=== PATIENT | male | born 1935 | race Caucasian/White ===

== ENCOUNTER 2016-10-05 06:34 | Emergency (ER) | payer MEDICARE, OTHER ==
[2016-10-05] MEDS ORDERED: diltiaZEM INJ 5 MG/ML VIAL IVP STA (06:59)
[2016-10-05] MEDS ORDERED: diltiaZEM INJ 5 MG/ML VIAL ONE (07:07)
== END 2016-10-05 07:55 | disposition home or self-care (01) ==
DX: R00.2 Palpitations (principal); I48.91 Unspecified atrial fibrillation; Z79.82 Long term (current) use of aspirin; G47.30 Sleep apnea, unspecified; K21.9 Gastro-esophageal reflux disease without esophagitis; M06.9 Rheumatoid arthritis, unspecified

== ENCOUNTER 2016-11-30 06:05 | Day surgery (SDC) | payer MEDICARE, OTHER ==
[2016-11-30] MEDS ORDERED: ceFAZolin 2 GM/50 ML 50 ML IV ONE (06:26)
[2016-11-30] MEDS ORDERED: LACTATED RINGERS 1,000 ML IV ONE (06:45)
[2016-11-30] MEDS ORDERED: LIDOCAINE 1%-EPI 1:100000 30 ML MDV SUBQ ONE ×2 (07:52)
[2016-11-30] MEDS ORDERED: BUPIVACAINE 0.5% PF 30 ML VIAL SUBQ ONE ×2 (07:52)
[2016-11-30] MEDS ORDERED: PROPOFOL 200 MG/20 ML VIAL IVP ONE (09:00)
[2016-11-30] MEDS ORDERED: LIDOCAINE-MPF 2% 5 ML VIAL IM ONE (09:00)
[2016-11-30] MEDS ORDERED: fentaNYL 100 MCG/2 ML VIAL IVP ONE (09:00)
[2016-11-30] MEDS ORDERED: MIDAZOLAM 2 MG/2 ML VIAL IVP ONE (09:00)
[2016-11-30 10:10] VITALS: BP 124/67
--- NOTE | 2016-11-30 12:54 | XRAY Report ---
FRONTAL CHEST: 11/30/2016 CLINICAL INDICATION: Port placement. FINDINGS: Frontal view of the chest demonstrates a right jugular port terminating in the inferior ve na cava. No pneumothorax is present. Patchy atelectasis is noted. IMPRESSION: RIGHT JUGULAR PORT TERMINATING IN THE INFERIOR VENA CAVA. RESULTS CALLED TO DR. PULLIAM ON 11/30/2016 AT 9:30 AM. JOB #: [id number] EXT JOB #:[id number]
--- NOTE | 2016-11-30 12:56 | XRAY Report ---
INTRAOPERATIVE IMAGING OF PORT PLACEMENT: 11/30/2016 CLINICAL INDICATION: Port placement. FINDINGS: Fluoroscopy was provided to Dr. King. Thirty-five seconds of fluoroscopy time was util ized. One spot image was obtained. Spot image demonstrates a right jugular catheter terminating in the proximal right atrium. IMPRESSION: INTRAOPERATIVE IMAGING OF PORT PLACEMENT. DOCUMENTATION OF FLUOROSCOPY. JOB #: [id number] EXT JOB #:
--- NOTE | 2016-12-02 07:43 | OPERATIVE REPORT ---
DATE OF SURGERY: 11/30/2016 00:00:00 PREOPERATIVE DIAGNOSIS: Esophageal cancer. POSTOPERATIVE DIAGNOSIS: Esophageal cancer. PROCEDURE: Port-A-Cath placement. INDICATION FOR PROCEDURE: Esophageal cancer. SURGEON: Clotilde King MD ANESTHESIA: (not dictated) FINDINGS: After obtaining informed consent, the patient was brought into the operating room and positioned on the operating table in the supine position with his arms tucked and a shoulder roll placed. He was administered sedation. He was then prepped and draped in the usual sterile fashion, and 2 grams of Ancef was administered. A time-out was taken according to protocol. An infraclavicular access site for a subclavian was chosen and the finder needle inserted below the clavicle. The clavicle was noted to be very wide, and access under the clavicle was very deep. My initial access point accessed the subclavian artery. The needle was then withdrawn and pressure held. I then turned my attention to the patient's left IJ. Using ultrasound guidance, the IJ was noted to be very superficial and was accessed; however, the needle would not thread down inton the SVC and continued to traverse into the right subclavian. After multiple attempts to thread the wire, this was abandoned. I again tried to access the internal jugular in a different location; however, I was unsuccessful. I then turned my attention to the patient's right neck. The finder needle was easily accessed into the right internal jugular and at this point the wire threaded very easily. The wire was noted to be descending towards the diaphragm on fluoroscopy. An incision was made on the right chest wall approximately 2 cm in length and deepened down through the clavipectoral fascia. A pocket was then created. Lidocaine was administered during this process. A tunneling device was then utilized to tunnel the catheter from the MediPort incision to the neck incision after extending the needle insertion site slightly. The catheter was brought out through the neck incision. Under direct fluoroscopy, the dilator and sheath were inserted over the wire in a Seldinger technique. The wire was then removed and the catheter inserted. The catheter positioning was adjusted under fluoroscopy. However, I could only move the catheter back at a certain point, and then it would no longer easily slide back. The tip of the catheter was noted to be in the IVC. The catheter was then cut to an appropriate length and connected to the MediPort device. The device was then tested by flushing saline and withdrawing blood, and it did so easily. The port was then inserted into the port cavity and sutured to the clavipectoral fascia with 2 interrupted Prolene stitches. Subcutaneous tissue was closed with 3-0 Vicryl, and skin incisions were closed with 4-0 Monocryl. Again the port was accessed through the skin and flushed easily and withdrew blood easily. It was flushed with heparinized saline. ESTIMATED BLOOD LOSS: 20 mL. COMPLICATIONS: None. SPECIMENS: None. JOB #: [id number] EXT JOB #:[id number] DOMINGA
== END 2016-11-30 06:06 | disposition home or self-care (01) ==
LOC: SDS 06:05
PROVIDERS: ATTEND Surgery
PROC: 06H033Z Insertion of Infusion Device into Inferior Vena Cava, Percutaneous Approach (ICD-10-PCS; 2016-11-30)
PROC: 0JH63XZ Insertion of Tunneled Vascular Access Device into Chest Subcutaneous Tissue and Fascia, Percutaneous Approach (ICD-10-PCS; principal; 2016-11-30 07:30)
DX: C15.9 Malignant neoplasm of esophagus, unspecified (principal); I25.10 Atherosclerotic heart disease of native coronary artery without angina pectoris; I48.91 Unspecified atrial fibrillation; G47.30 Sleep apnea, unspecified; I10 Essential (primary) hypertension
CPT/HCPCS: 36561; 71010; C1788; J0690; J7120

== ENCOUNTER 2017-03-18 13:47 | Outpatient (CLI) | payer MEDICARE, OTHER | END 2017-03-18 13:48 | disposition home or self-care (01) | LOC: DI 13:47 | PROVIDERS: ATTEND Internal Medicine Hematology & Oncology | DX: C15.9 Malignant neoplasm of esophagus, unspecified (principal); I51.7 Cardiomegaly | CPT/HCPCS: 93306 ==

== ENCOUNTER 2017-05-17 09:00 | Outpatient (CLI) | payer MEDICARE, OTHER | END 2017-05-17 09:01 | disposition home or self-care (01) | LOC: LAB.R 09:00 | PROVIDERS: ATTEND Internal Medicine | DX: J84.9 Interstitial pulmonary disease, unspecified (principal) | CPT/HCPCS: 87070; 87205 ==

== ENCOUNTER 2017-06-01 07:31 | Outpatient (CLI) | payer MEDICARE, OTHER | END 2017-06-01 07:32 | disposition critical access hospital (66) | LOC: EMS 07:31 | PROVIDERS: ATTEND Surgery | DX: R06.00 Dyspnea, unspecified (principal) | CPT/HCPCS: A0425; A0427 ==

== ENCOUNTER 2017-06-01 08:00 | Inpatient (IN) | payer MEDICARE, OTHER ==
--- NOTE | 2017-06-01 08:22 | ED Physician Documentation ---
PD HPI DYSPNEA - Stated complaint Stated Complaint: SOA - Chief complaint Chief Complaint: Resp - History obtained from History obtained from: Patient - History of Present Illness Timing - onset: How many days ago (2) - Additional information Additional information: 81 year old male with Shortness of breath beginning 2 days ago, worsening last night. He reports that his oxygen saturation normally drops into the 80s with ambulation on his usual 2 L of nasal cannula, but improves with rest. Last night O2 as low as 55%,Daughter increased oxygen to 5 L nasal cannula without improvement. EMS placed patient on DuoNeb with 10 L, and 6 L nasal cannula underneath with oxygen saturation up to 90s. Patient denies chest pain, does not use nebulizers or inhalers at home,Complains of generalized weakness. He has a chronic cough does not believe it is changed from usual, no fevers.Patient just finished a 48 hour infusion of chemotherapy on Saturday.He takes no blood thinners, has history of A. fib but reports that he does trolled with flecainide (patient also on digoxin). No history of blood clots, reports chronic lower extremity swelling that is improved currently. He reports that he has assigned POLST with DNR, but does accept intubation. Oncology Dr. [facility] [place] Review of Systems Ten Systems: 10 systems reviewed and negative Constitutional: denies: Fever Throat: denies: Sore throat Cardiac: denies: Chest pain / pressure Respiratory: reports: Dyspnea GI: denies: Abdominal Pain : denies: Dysuria Skin: denies: Rash Musculoskeletal: reports: Back pain, Extremity swelling (improved from baseline) Neurologic: reports: Generalized weakness Immunocompromised: reports: Chemotherapy PD PAST MEDICAL HISTORY - Past Medical History Cardiovascular: Atrial fibrillation, Other Respiratory: Sleep apnea, Other Neuro: None Endocrine/Autoimmune: None GI: GERD : Nocturia, Frequency HEENT: Chronic vision loss Psych: None Musculoskeletal: Rheumatoid arthritis, Other Derm: None - Past Surgical History General: Appendectomy, Colonoscopy Cardiovascular: Other HEENT: Tonsil/Adenoidectomy - Present Medications Home Medications: Ambulatory Orders Medication Instructions Recorded Confirmed Ascorbic Acid [Vitamin C] 1,000 mg PO BID 05/11/15 06/01/17 Aspirin EC [Ecotrin] 325 mg PO DAILY 05/11/15 06/01/17 Cyanocobalamin (Vitamin B-12) 5,000 mcg SL DAILY 05/11/15 06/01/17 [B-12] Dutasteride [Avodart] 0.5 mg PO DAILY 05/11/15 06/01/17 Flaxseed Oil [Flaxseed] 1,300 mg PO DAILY 05/11/15 06/01/17 Flecainide Acetate 100 mg PO BID 05/11/15 06/01/17 Fluticasone [Flonase] 1 sprays WANG BID 05/11/15 06/01/17 Gluc Hughes/Chondro Hughes A/Vit C/Mn 1 each PO BID 05/11/15 06/01/17 [Glucosamine 1,500 Complex Cp] Hydroxychloroquine [Plaquenil] 200 mg PO BID 05/11/15 06/01/17 L.acidoph,Paracasei, B.lactis 1 each PO BID 05/11/15 06/01/17 [Probiotic] Lactobacillus Acidophilus 1 each PO BID 05/11/15 06/01/17 [Acidophilus] Loratadine 10 mg PO DAILY 05/11/15 06/01/17 Multivitamin with Minerals 1 each PO DAILY 05/11/15 06/01/17 [Multiple Vitamin] [place]-3/Dha/Epa/Fish Oil [Fish Oil 1 cap PO DAILY 05/11/15 06/01/17 1,400 mg Softgel] Vitamin A 8,000 unit PO DAILY 05/11/15 06/01/17 Cholecalciferol (Vitamin D3) 2,000 unit ORAL DAILY 10/05/16 06/01/17 [Vitamin D3] Iron,Carbonyl [Iron Chews] 60 mg ORAL BID 10/05/16 06/01/17 Ubidecarenone/Vitamin E Mixed 300 mg ORAL BID 10/05/16 06/01/17 [Dtz87-Gal E 100 mg-10 Unit Sfg] Pantoprazole [Protonix] 40 mg PO QDAC 01/02/17 06/01/17 B Complx/C/Folic/Zinc/Copper/E 1 tab PO DAILY 03/26/17 06/01/17 [Eql Stress B-Complex Tablet] predniSONE [Prednisone] 40 mg PO DAILY MDD x 7 days 05/31/17 06/01/17 Digoxin [Digoxin] 125 mcg PO SUTUTHSA@0900 06/01/17 06/01/17 Digoxin [Digoxin] 250 mcg PO MOWEFR@0900 06/01/17 06/01/17 Fluorouracil 4,700 mg IV .[id number] 06/01/17 06/01/17 LORazepam [Lorazepam] 0.5 mg PO PRN PRN 06/01/17 06/01/17 Leucovorin Calcium 350 mg IV .[id number] 06/01/17 06/01/17 Ondansetron HCl [Zofran] 4 mg PO Q6H PRN 06/01/17 06/01/17 Prochlorperazine [Compazine] 10 mg PO Q6H PRN 06/01/17 06/01/17 Trastuzumab [Herceptin] 320 mg IV .[id number] 06/01/17 06/01/17 Zoledronic Acid 4 mg/100 ml 3 mg IV .[id number] 06/01/17 06/01/17 [Zometa 4 mg/100 ml] - Allergies Allergies/Adverse Reactions: Allergies Allergy/AdvReac Type Severity Reaction Status Date / Time ciprofloxacin [From Cipro] Allergy Intermediate Hives Verified 06/01/17 08:06 ciprofloxacin HCl * Allergy Intermediate Hives Verified 06/01/17 08:06 [From Cipro] - Living Situation Living Situation: reports: With spouse/s.o. Living Arrangement: reports: At home - Social History Does the pt smoke?: No Smoking Status: Never smoker Does the pt drink ETOH?: No Does the pt have substance abuse?: No - Immunizations Immunizations are current?: Yes PD ED PE NORMAL - Vitals Vital signs reviewed: Yes - General General: Alert and oriented X 3 - HEENT HEENT: Atraumatic - Neck Neck: Supple, no meningeal sign - Cardiac Cardiac: No murmur, Other (tachycardia) - Respiratory Respiratory: Other (tachypnea without distress, speaking in short sentences, no wheeze, equal breath sounds BL ) - Abdomen Abdomen: Normal bowel sounds, Non tender, Non distended - Male Male : Deferred - Derm Derm: Warm and dry, Other (peripheral cyanosis ) - Extremities Extremities: No tenderness to palpate, No edema - Neuro Neuro: Alert and oriented X 3, Normal speech - Psych Psych: Normal affect Results - Vitals Vitals: Vital Signs - 24 hr 06/01/17 06/01/17 08:02 08:56 Temperature 36.6 C Heart Rate 101 H 91 Respiratory 26 H 24 Rate Blood Pressure 190/113 H 178/95 H O2 Saturation 81 L 97 Oxygen O2 Source Non-rebreather mask - Labs Labs: Laboratory Tests 06/01/17 06/01/17 06/01/17 08:20 08:20 08:20 WBC 12.9 H RBC 3.96 L Hgb 12.4 L Hct 36.2 L MCV 91.3 MCH 31.2 H MCHC 34.2 RDW 21.4 H Plt Count 183 MPV 7.0 L Neut # 12.0 H Lymph # 0.6 L [place] # 0.2 Eos # 0.0 Baso # 0.1 Absolute Nucleated RBC 0.00 Nucleated RBC % 0.0 Manual Slide Review Indicated Platelet Estimate NORMAL (130-450,000) Platelet Morphology NORMAL APPEARANCE RBC Morph Micro Appear 1+ ANISOCYTOSIS PT 15.5 H INR 1.4 H APTT 23.5 L VBG pH VBG pCO2 VBG pO2 VBG HCO3 VBG Total CO2 VBG O2 Saturation VBG Base Excess Sodium 134 L Potassium 3.7 Chloride 99 L Carbon Dioxide 23 Anion Gap 12.0 BUN 33 H Creatinine 0.9 Estimated GFR (MDRD) 81 L Glucose 142 H Lactic Acid Calcium 9.1 Total Bilirubin 1.0 AST 25 ALT 20 Alkaline Phosphatase 70 Troponin I B-Natriuretic Peptide Total Protein 6.7 Albumin 2.8 L Globulin 3.9 Albumin/Globulin Ratio 0.7 L Lipase 15 L Urine Color Urine Clarity Urine pH Ur Specific Protivin Urine Protein Urine Glucose (UA) Urine Ketones Urine Occult Blood Urine Nitrite Urine Bilirubin Urine Urobilinogen Ur Leukocyte Esterase Ur Microscopic Review Urine Culture Comments Last Dose Date Last Dose Time Digoxin 06/01/17 06/01/17 06/01/17 08:20 08:20 08:20 WBC RBC Hgb Hct MCV MCH MCHC RDW Plt Count MPV Neut # Lymph # [place] # Eos # Baso # Absolute Nucleated RBC Nucleated RBC % Manual Slide Review Platelet Estimate Platelet Morphology RBC Morph Micro Appear PT INR APTT VBG pH 7.450 H VBG pCO2 36.4 L VBG pO2 33.8 VBG HCO3 24.7 VBG Total CO2 25.8 VBG O2 Saturation 72.1 VBG Base Excess 1.0 Sodium Potassium Chloride Carbon Dioxide Anion Gap BUN Creatinine Estimated GFR (MDRD) Glucose Lactic Acid 0.9 Calcium Total Bilirubin AST ALT Alkaline Phosphatase Troponin I < 0.04 B-Natriuretic Peptide Total Protein Albumin Globulin Albumin/Globulin Ratio Lipase Urine Color Urine Clarity Urine pH Ur Specific Protivin Urine Protein Urine Glucose (UA) Urine Ketones Urine Occult Blood Urine Nitrite Urine Bilirubin Urine Urobilinogen Ur Leukocyte Esterase Ur Microscopic Review Urine Culture Comments Last Dose Date Last Dose Time Digoxin 06/01/17 06/01/17 06/01/17 08:20 08:20 08:45 WBC RBC Hgb Hct MCV MCH MCHC RDW Plt Count MPV Neut # Lymph # [place] # Eos # Baso # Absolute Nucleated RBC Nucleated RBC % Manual Slide Review Platelet Estimate Platelet Morphology RBC Morph Micro Appear PT INR APTT VBG pH VBG pCO2 VBG pO2 VBG HCO3 VBG Total CO2 VBG O2 Saturation VBG Base Excess Sodium Potassium Chloride Carbon Dioxide Anion Gap BUN Creatinine Estimated GFR (MDRD) Glucose Lactic Acid Calcium Total Bilirubin AST ALT Alkaline Phosphatase Troponin I B-Natriuretic Peptide 133 H Total Protein Albumin Globulin Albumin/Globulin Ratio Lipase Urine Color YELLOW Urine Clarity CLEAR Urine pH 6.0 Ur Specific Protivin 1.020 Urine Protein TRACE Urine Glucose (UA) NEGATIVE Urine Ketones NEGATIVE Urine Occult Blood NEGATIVE Urine Nitrite NEGATIVE Urine Bilirubin NEGATIVE Urine Urobilinogen 0.2 (NORMAL) Ur Leukocyte Esterase NEGATIVE Ur Microscopic Review NOT INDICATED Urine Culture Comments NOT INDICATED Last Dose Date UNK Last Dose Time UNK Digoxin 0.5 PD MEDICAL DECISION MAKING - ED course Complexity details: reviewed old records, reviewed results, re-evaluated patient , considered differential, d/w patient ED course: 8:53 AM, Chest x-ray with worsening bilateral infiltrates per my interpretation. Patient has an elevation in his white blood cell count 12.6 increased from prior values, he may be having worsening interstitial lung disease which was seen on CT of his chest in March. Will treat with antibiotics for healthcare associated pneumonia, blood cultures sent, VBG without CO2 retention, Improvement in patient's oxygenation with nonrebreather.Will treat with IV steroids for interstitial lung disease. 9:19 Updated patient and family members regarding possible pneumonia vs. worsening interstitial lung disease, Plan for admission to ICU. Patient's oxygenation and shortness of breath improved, transitioned to 7L via oxygen mask , however continues to have tachypnea. Discussed patient's case with Dr. Junior , agrees with admission. Given vancomycin, zosyn, IV solumedrol. Departure - Departure Disposition: 66 [facility] DC/Xfer Clinical Impression: Hypoxia, SOB (shortness of breath), Interstitial lung disease, Healthcare- associated pneumonia Condition: Serious Discharge Date/Time: 06/01/17 10:18
[2017-06-01 08:41] LABS: VBG PCO2 36.4 mmHg (41-51); VBG PH 7.45 (7.31-7.41); VBG PO2 33.8 mmHg (25-47); VBG TOTAL CO2 25.8 mmol/L (24-29)
[2017-06-01 08:43] LABS: BASOPHILS # (AUTO) 0.1 10^3/uL (0.0-0.1); BASOPHILS % (AUTO) 0.6 %; HGB - HEMOGLOBIN 12.4 g/dL (14.0-18.0); LYMPHOCYTES # (AUTO) 0.6 10^3/uL (1.5-3.5); LYMPHOCYTES % (AUTO) 4.8 %; MEAN CORPUSCULAR HEMOGLOBIN 31.2 pg (27.0-31.0); MEAN CORPUSCULAR HGB CONC 34.2 g/dL (32.0-36.0); MEAN CORPUSCULAR VOLUME 91.3 fL (80.0-94.0); MONOCYTES # (AUTO) 0.2 10^3/uL (0.0-1.0); MONOCYTES % (AUTO) 1.9 %; NEUTROPHILS % (AUTO) 92.7 %; PLT - PLATELET COUNT 183 10^3/uL (130-450); RED BLOOD COUNT 3.96 10^6/uL (4.70-6.10); RED CELL DISTRIBUTION WIDTH 21.4 % (12.0-15.0); WHITE BLOOD COUNT 12.9 x10^3/uL (4.8-10.8)
[2017-06-01 08:49] LABS: INR 1.4 (0.8-1.2); PT - PROTHROMBIN TIME 15.5 secs (9.9-12.6)
[2017-06-01 08:51] LABS: ALBUMIN 2.8 g/dL (3.2-5.5); ALBUMIN/GLOBULIN RATIO 0.7 (1.0-2.2); CALCIUM 9.1 mg/dL (8.5-10.3); CREATININE 0.9 mg/dL (0.6-1.2); TOTAL PROTEIN 6.7 g/dL (6.7-8.2)
[2017-06-01 08:54] LABS: BILIRUBIN,URINE NEGATIVE (NEGATIVE); GLUCOSE, URINE (UA) NEGATIVE (NEGATIVE); KETONES,URINE (UA) NEGATIVE (NEGATIVE); LEUKOCYTE ESTERASE, URINE NEGATIVE (NEGATIVE); NITRITE,URINE NEGATIVE (NEGATIVE); OCCULT BLOOD,URINE NEGATIVE (NEGATIVE); PROTEIN,URINE TRACE mg/dL (NEGATIVE); UROBILINOGEN,URINE 0.2 (NORMAL) E.U./dL (NORMAL)
[2017-06-01 08:55] LABS: DIGOXIN 0.5 ng/mL
[2017-06-01 08:57] LABS: CLARITY,URINE CLEAR (CLEAR)
[2017-06-01] MEDS ORDERED: VANCOMYCIN INJ 1 GM in SODIUM CHLORIDE 0.9% 250 ML IV STA (08:57)
[2017-06-01] MEDS ORDERED: PIPERACILLIN/TAZOBACTAM 4.5 GM in SODIUM CHLORIDE 0.9% MINIBAG 100 ML IV STA (08:57)
[2017-06-01] MEDS ORDERED: methylPREDNISolone SUCCINATE 125 MG/2 ML VIAL IVP STA (08:59)
--- NOTE | 2017-06-01 09:00 | XRAY Preliminary Report ---
Exam: XR CHEST 1 VIEW IMPRESSION: 1. Mildly lower lung volumes with increased bilateral patchy and groundglass opacities throughout bot h lungs since the prior study. This may reflect a combination of worsening pneumonia, edema, and atel ectasis in the proper settings. 2. No large effusions identified, although small effusions would be difficult to completely exclude. 3. Stable right-sided port catheter with tip terminating deep within the right atrium. [facility] SITE ID: [id number]
--- NOTE | 2017-06-01 09:03 | XRAY Report ---
EXAM: CHEST RADIOGRAPHY EXAM DATE: 06/01/2017 08:46 AM. CLINICAL HISTORY: Hypoxia. COMPARISON: CT 04/24/2017. TECHNIQUE: 1 view. FINDINGS: Lungs/Pleura: Lung volumes are mildly low. Apparent increase of bilateral patchy and groundglass opac ities throughout both lungs since the prior study. No large effusions identified. No pneumothorax chip ntified. Mediastinum: Cardiac silhouette size appears stable. Right-sided chest wall port catheter tip appears stable terminating deep within the right atrium. Other: None. IMPRESSION: 1. Mildly lower lung volumes with increased bilateral patchy and groundglass opacities throughout bot h lungs since the prior study. This may reflect a combination of worsening pneumonia, edema, and atel ectasis in the proper settings. 2. No large effusions identified, although small effusions would be difficult to completely exclude. 3. Stable right-sided port catheter with tip terminating deep within the right atrium. [facility] Referring Provider Line: [phone] SITE ID: [id number]
[2017-06-01 09:07] LABS: PLATELET ESTIMATE, MANUAL NORMAL (130-450,000) (NORMAL); PLATELET MORPHOLOGY NORMAL APPEARANCE (NORMAL); RBC MORPHOLOGY (MULTIPLE) 1+ ANISOCYTOSIS (NORMAL)
[2017-06-01] MEDS ORDERED: methylPREDNISolone SUCCINATE 125 MG/2 ML VIAL ONE (09:08)
[2017-06-01] MEDS ORDERED: ONDANSETRON ODT 4 MG TABLET TL PRN (09:16)
[2017-06-01] MEDS ORDERED: SODIUM CHLORIDE FLUSH 0.9% 10 ML SYRINGE IVP PRN (09:16)
[2017-06-01] MEDS ORDERED: ACETAMINOPHEN 325 MG TABLET PO PRN (09:16)
[2017-06-01] MEDS ORDERED: HYDROcod/ACETAM 5/325 MG TABLET PO PRN (09:16)
[2017-06-01] MEDS ORDERED: ONDANSETRON 4 MG/2 ML VIAL IVP PRN (09:16)
[2017-06-01] MEDS ORDERED: ALBUTEROL NEB 2.5 MG/3 ML INH PRN (09:16)
[2017-06-01] MEDS ORDERED: LACTOBACILLUS ACIDOPHILUS PO SCH (09:30)
[2017-06-01] MEDS ORDERED: VANCOMYCIN 1 GM VIAL ONE (09:46)
[2017-06-01] MEDS ORDERED: VANCOMYCIN PER PHARMACY 1 GM in SODIUM CHLORIDE 0.9% 250 ML IV SCH (10:00)
--- NOTE | 2017-06-01 10:25 | HISTORY & PHYSICAL EXAMINATION ---
Chief Complaint - Chief Complaint Chief Complaint: Severe shortness of breath in a patient who has known interstitial lung pro History of Present Illness - Admitted From Admitted From:: Emergency room - History Obtained From Records Reviewed: [employer] [facility] History obtained from: Patient, medical record, and emergency room physician Exam Limitations: Patient shortness of breath - History of Present Illness HPI Comment/Other: Primary Care Provider: Usman Hernandez MD in [place], [place] Oncology: Bonnie Hammer MD at [facility], Oncology seen at [facility] Grain Manager: Ellis Arriaza MD at [facility] in [place]. 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 Up until then, he was quite healthy. That biopsy led to a CT PET on November 21, 2016. It showed a primary mass in the esophagus with metastatic disease to the left supraclavicular nodes, bilateral mediastinum and raymond, left parotid, right thyroid, right mid lung, and extensive osseous involvement including sternum, multiple ribs, lumbar spine and sacrum, left iliac bone, left issue him, left humeral shaft, femurs bilaterally. Chest x-ray done in 2011 already showed underlying emphysema with basilar fibrosis. He shares that he's had "rheumatoid lung" for over 2 decades and is followed by Dr. Ellis Arriaza from [facility] in [place] and [place]. The CT PET done October 2016 showed bilateral diffuse interstitial infiltrates with subpleural septal thickening compatible with interstitial lung disease. 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 He was recommended for Herceptin continued chemotherapy regimen and modified FOLFOX 6 every 2 weeks. Plan was 12 cycles. Side effects were fatigue, nausea, abdominal pain, diarrhea, peripheral neuropathy, bone marrow suppression. He was given Zometa infusion for his bony metastases.The patient was hoping for disease remission. Symptoms at the beginning of treatment were low. Mainly he was having difficulty eating , with increased acid reflux type pain and it would take 30-60 minutes to eat breakfast.[place]. In October he was sleeping a little bit more than usual, a little bit more fatigued than usual but still able to take care of the 5 acres, do yard work, work in his shop. Port-A-Cath was placed November 30, [address] Claire King.While he has had no clinical evidence of disease recurrence or progression, his complications have included a gradually worsening shortness of breath throughout his therapy. Bony metastases were managed with Zometa. He did develop peripheral neuropathy, and a pancytopenia that is remained stable and not worsening. Treatment continued until April 23 when increasing toxicity and poor tolerance to his chemotherapy resulted in it being held. Repeat CT scan for staging was done because his CEA had continued decline. 5- FU and Herceptin were started as maintenance. CT of the chest was done for restaging and the April 25 CT of the chest showed a gross increase in bilateral interstitial lung disease with groundglass opacities and interstitial thickening. These findings were seen as possible to radiation. The diagnosis of interstitial lung disease was added to his April 30 note with the Oncologist. For the first time his cough was discussed. Oncology felt that his cough was not related to his metastatic cancer. And he was encouraged to see a lock installer. He did see who ordered PFT's and was put on doxycycline the week before . Pulmonary function study done May 20, 2017 showed an FVC of 2.03 L which was 51% of predicted. An FEV1 was 1.8 L which was 64% of predicted. His FEV1/ FVC ratio was 88 which was 124% of predicted. Lung volumes showed an FVC of 2.08 L which was 47% of predicted. Diffusion capacity was measured at 8.66 which was 26% predicted. He was felt to have an element of obstruction but more than anything else restriction and a severe reduction in diffusion capacity. This reduction was felt to be due to disease at the capillary alveolar level. While he was getting a dose of chemotherapy May 29, Hayley Stratton, the nurse practitioner sales team manager ambulatory clinic, evaluated him to make sure his oxygen was okay. Up until then, he doesn't think his O2 sat were checked with his lock installer or with the PFT's. So he doesn't know how long his oxygen has been low. At rest he had a 93% saturation on room air. With exertion he dropped to 82%. He ended up needing 5 L/min per nasal cannula to maintain an O2 sat of 90% with exertion. Home oxygen was ordered. There is no indication of the cause of the hypoxia at this time. No workup of the hypoxia other than pulmonary function studies. He now presents today so short of breath that he cannot be comfortable even at rest. He woke up struggling to breath and has felt awful. He has productive cough of blood tinged phlegm, and he denies fever, chills, rigors. His appetite is poor and he keeps losing weight. It hurts to eat to much in the mid esophagus. While he had some leg edema in May, that has abated. In the ER, he is afebrile, newly elevated white cell count to 12.9. He was struggling to breath with a rate of 26, ribs retracting and 81% on NC. He needs a 7 liter nonrebreather to get him above 90%. Chest x-ray shows the much worse ground glass diffuse infiltrates when compared to the 04/25 CT. We are going to admit him for empiric treatment of bronchiectasis and further workup of this disease process. History - Past Medical History Cardiovascular: reports: Atrial fibrillation (Ablation in 2005. 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 Was on Proscar clinical trial for 6 years without improvment. ), Nocturia, Frequency HEENT: reports: Chronic vision loss, Chronic hearing loss (with hearing aids.), Other (early cataracts.) Psych: reports: None Musculoskeletal: reports: Rheumatoid arthritis (On Arava and Plaquenil when treatment for cancer started), Other (Severe AC joint arthropathy with fraying of the labrum, biceps tear, supraspinatus and infraspinatus tear, and atrophy of the teres minor muscle. He saw MD Dawna and surgery was not recommended bc of the severe deterioration.) Derm: reports: None MRSA Hx?: No Other Past Medical History: lung disease - Past Surgical History General: reports: Appendectomy, Colonoscopy, Other (Left inguinal hernia repair with mesh May 13, 2015) Cardiovascular: reports: Other (Status post ablation 2005) HEENT: reports: Tonsil/Adenoidectomy Other past surgical history: Port-A-Cath placement November 30, 2016 - Family & Social History Family History Comment/Other: Both mom and dad around age 89. Dad had lung cancer and decades prior to his and had recurrence and . Mom just of old age. One sister at age 13 of leukemia 2 sons and 1 daughter are healthy without any major medical issues Living arrangement: At home Living Situation: With spouse/s.o. Social History Notes: Non-smoker. Rare alcohol drinker. to his , Deanna, for 56 years. They have 3 very supportive children. 2 sons are in [place], and the daughter lives in [place]. He was born in [place]. 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 He is retired from the [employer] after 30 years, and is a semiretired certified medical technician assistant. His is an assistant financial accountant.They have been living on [address] [facility] for 52 years - Substance History Use: Uses substance without health or social issues: NONE Abuse: Recurrent use of substance despite neg consequences: NONE Dependence: Experiences withdrawal or developed tolerances: NONE - POLST Patient has POLST: No POLST Status: DNR (He is okay with the use of BiPAP, intubation to get him through respiratory illness that is severe. But if he has a cardiac arrest, no CPR, no cardioversion, no chest compression) Meds/Allgy - Home Medications Home Medications: Ambulatory Orders Medication Instructions Recorded Confirmed Ascorbic Acid [Vitamin C] 1,000 mg PO BID 05/11/15 06/01/17 Aspirin EC [Ecotrin] 325 mg PO DAILY 05/11/15 06/01/17 Cyanocobalamin (Vitamin B-12) 5,000 mcg SL DAILY 05/11/15 06/01/17 [B-12] Dutasteride [Avodart] 0.5 mg PO DAILY 05/11/15 06/01/17 Flaxseed Oil [Flaxseed] 1,300 mg PO DAILY 05/11/15 06/01/17 Flecainide Acetate 100 mg PO BID 05/11/15 06/01/17 Fluticasone [Flonase] 1 sprays WANG BID 05/11/15 06/01/17 Gluc Hughes/Chondro Hughes A/Vit C/Mn 1 each PO BID 05/11/15 06/01/17 [Glucosamine 1,500 Complex Cp] Hydroxychloroquine [Plaquenil] 200 mg PO BID 05/11/15 06/01/17 L.acidoph,Paracasei, B.lactis 1 each PO BID 05/11/15 06/01/17 [Probiotic] Lactobacillus Acidophilus 1 each PO BID 05/11/15 06/01/17 [Acidophilus] Loratadine 10 mg PO DAILY 05/11/15 06/01/17 Multivitamin with Minerals 1 each PO DAILY 05/11/15 06/01/17 [Multiple Vitamin] Callery-3/Dha/Epa/Fish Oil [Fish Oil 1 cap PO DAILY 05/11/15 06/01/17 1,400 mg Softgel] Vitamin A 8,000 unit PO DAILY 05/11/15 06/01/17 Cholecalciferol (Vitamin D3) 2,000 unit ORAL DAILY 10/05/16 06/01/17 [Vitamin D3] Iron,Carbonyl [Iron Chews] 60 mg ORAL BID 10/05/16 06/01/17 Ubidecarenone/Vitamin E Mixed 300 mg ORAL BID 10/05/16 06/01/17 [Rcx39-[id number] E 100 mg-10 Unit Sfg] Pantoprazole [Protonix] 40 mg PO QDAC 01/02/17 06/01/17 B Complx/C/Folic/Zinc/Copper/E 1 tab PO DAILY 03/26/17 06/01/17 [Eql Stress B-Complex Tablet] predniSONE [Prednisone] 40 mg PO DAILY MDD x 7 days 05/31/17 06/01/17 Digoxin [Digoxin] 125 mcg PO SUTUTHSA@0900 06/01/17 06/01/17 Digoxin [Digoxin] 250 mcg PO MOWEFR@0900 06/01/17 06/01/17 Fluorouracil 4,700 mg IV .[id number] 06/01/17 06/01/17 LORazepam [Lorazepam] 0.5 mg PO PRN PRN 06/01/17 06/01/17 Leucovorin Calcium 350 mg IV .[id number] 06/01/17 06/01/17 Ondansetron HCl [Zofran] 4 mg PO Q6H PRN 06/01/17 06/01/17 Prochlorperazine [Compazine] 10 mg PO Q6H PRN 06/01/17 06/01/17 Trastuzumab [Herceptin] 320 mg IV .[id number] 06/01/17 06/01/17 Zoledronic Acid 4 mg/100 ml 3 mg IV .[id number] 06/01/17 06/01/17 [Zometa 4 mg/100 ml] - Allergies Allergies/Adverse Reactions: Allergies Allergy/AdvReac Type Severity Reaction Status Date / Time ciprofloxacin [From Cipro] Allergy Intermediate Hives Verified 06/01/17 08:06 ciprofloxacin HCl * Allergy Intermediate Hives Verified 06/01/17 08:06 [From Cipro] Review of Systems - Constitutional Constitutional: reports: Fatigue, Malaise, Weakness, Poor appetite, Weight loss - Eyes Eyes: denies: Pain, Irritation, Amaurosis, Vision loss - Ears, Nose & Throat Ears, Nose & Throat: reports: Hearing loss, Hearing aids, Vertigo (when he gets up now). denies: Ear pain, Tinnitus, Sore throat, Hoarseness - Cardiovascular Cariovascular: reports: Edema, Lightheadedness, Exertional dyspnea, Decr. exercise tolerance. denies: Palpitations, Chest pain, Syncope - Respiratory Respiratory: reports: Cough, Sputum production, Hemoptysis, SOB at rest, SOB with exertion, Apnea. denies: Wheezing, Snoring, Orthopnea, Stridor, Pleuritic pain - Gastrointestinal Gastrointestinal: reports: Nausea. denies: Abdominal pain, Abdominal distention , Constipation, Diarrhea, Change in bowel habits, Bloody stools, Vomiting - Genitourinary Genitourinary: reports: Frequency, Urgency, Incontinence. denies: Dysuria, Hematuria, Flank pain, Nocturia - Musculoskeletal Musculoskeletal: reports: Muscle weakness. denies: Muscle pain, Back pain, Muscle aches, Stiffness, Joint swelling (for years. RA controlled. Off Arava since 11/2016) - Integumentary Integumentary: denies: Rash, Pruritis, Lesions - Neurological Neurological: reports: General weakness, Dizziness, Numbness (below the knees to feet), Memory problems (chemo brain). denies: Focal weakness, Headache, Pre- existing deficit, Abnormal gait, Seizures, Incoordination, Slurred speech - Psychiatric Psychiatric: reports: Depression. denies: Anxiety, Suicidal, Delusions, Hallucinations, Homicidal - Endocrine Endocrine: denies: Polyuria, Polydypsia - Hematologic/Lymphatic Hematologic/Lymphatic: reports: Anemia. denies: Bruising, Petechiae, Blood clots Exam - Vital Signs Reviewed Vital Signs: Yes Vital Signs: Vital Signs x48h Temp Pulse Resp BP Pulse Ox 06/01/17 09:18 37.6 C H 90 22 173/95 H 95 06/01/17 08:56 91 24 178/95 H 97 06/01/17 08:02 36.6 C 101 H 26 H 190/113 H 81 L - Physical Exam General Appearance: positive: No acute distress, Alert, Other (thin, cachectic elderly white male in ICU with face mask. , daughter, and daughter's partner at the bedside. Able to speak short, quick sentences and not get sob. Lets do most of the talking.) Eyes Bilateral: positive: PERRL, EOMI ENT: positive: Dry mucous membranes (mouth breathing) Neck: positive: Lymphadenopathy (R) (shotty), Lymphadenopathy (L). negative: Stiff neck, Carotid bruit Respiratory: positive: Chest non-tender, No respiratory distress (at rest but if speaks or repositions in bed, gets tachypneic and O2 sat drops), Rales ( diffuse thoughout all his lungs bilaterally), Rhonchi. negative: Wheezes Cardiovascular: positive: Regular rate & rhythm, Systolic murmur. negative: Gallop/S4, Friction rub Peripheral Pulses: positive: 2+ Abdomen: positive: Non-tender, No organomegaly, Nml bowel sounds, No distention Skin: positive: Warm, Dry, Pallor Extremities: positive: Non-tender, No pedal edema, Joint swelling. negative: Erin's sign/cords Neurologic/Psychiatric: positive: Oriented x3, CN's nml (2-12), Motor nml (but diffusely weak and) Conclusion/Plan - Problem List (1) Acute respiratory failure with hypoxia Conclusion/Plan: From acute ground glass infection/inflammation superimposed on chronic interstitial lung disease. presents with a hx of rheumatoid lung and interstitial lung disease for decades. unsure of how long he's been hypoxic with this. He was on Arava and plaquenil prior to chemotherapy with Arava stopped 11/2016. recent CT 04/25 confirms worsening disease in the face of chemotherapy with FOLFOX. Now very ill and he does want intubation if needed with agressive therapy. He recognizes that he has Stage IV esophageal cancer but he also understands he has responded to treatment with tumor load reduction and disease is stable and not progressing, yet. His respiratory failure is from superimposed acute lung disease on chronic lung disease. No CHF since BNP low and his 4 ECHO's done since 11/2016 have nml EF of 65-70% and no significant valvular heart disease and only minimal elevated RV pressures. Plan: ICU with nonrebreather to stabilize. He's already breathing easier than in ER. Intubate if necessary. and daughter supportive and agree with his decision. Zosyn/Vancomycin for broad spectrum tx in a patient who is immunocompromised in a health care setting Call Dr. Arriaza to advise patient is here and would he want something added. (2) Ground glass opacity present on imaging of lung Conclusion/Plan: worsening over the last few films superimposed on chronic interstitial lung disease with RA who was on ARAVA, plaquenil in a patient undergoing chemo with FOLFOX and most recently only herceptic and 5FU. Diferential diagnosis would include: inflammation from chemo or drug toxicity (it would be one of his chemo drugs since plaquenil and arava not associated with this) infection with atypical as well as typical pathogens in this immunocompromised man CHF but highly unlikely since ECHO and BNP do not indicate he's in CHF. Whatever the cause,it is resulting in acute respiratory failure with hypoxia. Plan: ICU Intubate if necessary zosyn and vancomycin Day #1 Get sputum culture for atypicals: AFB,PCP, legionella Call Dr. Arriaza, Grain Manager to see if he wants to add treament plans. (3) Stage IV adenocarcinoma of esophagus Conclusion/Plan: From my interpretation of the Oncology notes, he's achieved reduction in tumor burden but CEA levels are rising. Most recent CT shows no progression and some response of disease status. He is on maintenance herceptin and 5fu and he indicates that if successfully treated for the acute lung disease, he wants to continue treatment. Pain is controlled with Zometa and OTC meds. Plan: make sure Oncology notified for continuity of care oxycodone for pain prn (4) Pancytopenia due to antineoplastic chemotherapy Conclusion/Plan: Stable according to Oncology notes. WBC was nml last 2 weeks until today. Hgb nor platelets have not needed transfusions. Laboratory Tests 11/23/16 01/14/17 02/12/17 13:15 11:15 09:05 WBC Hgb 11.2 L 9.1 L Plt Count 137 92 L 04/08/17 04/22/17 05/27/17 11:00 11:37 10:20 WBC 3.7 L 5.6 Hgb 11.7 L Plt Count 90 L 121 L 06/01/17 08:20 WBC 12.9 Hgb 12.4 L Plt Count 183 (5) Rheumatoid arthritis in remission Conclusion/Plan: no acute joint effusion or pain. Shoulder rotator cuff tear pain stable and was able to use arm after PT. No arava since 11/2016. On plaquenil. Will be held for now. (6) Weight loss, abnormal Conclusion/Plan: but expected with his esophageal disease and his chemo. he was Rx'd megace and filled the Rx but never took it. he read the risks of sides effects, especially DVT, and felt the risk outweighed the benefit so never took it. He wants to gain weight but can't eat. Plan: offered dobhoff for tube feeds and he says that's fine. (7) Peripheral neuropathy due to chemotherapy Conclusion/Plan: pain has stabilized. Not needing more meds. They have also been following his ECHO for LV function and that is stable as well with EF 65-70% (8) DNR (do not resuscitate) discussion Conclusion/Plan: he still wants to be intubated if we think his infection or inflammation can be turned around. he doesn't want CPR or chest compressions for cardiac arrest. (9) DVT prophylaxis Conclusion/Plan: lovenox 40 mg SQ. - Lab Results Fish Bones: 06/01/17 08:20 06/01/17 08:20 Issues/Core Measures - Anticipated LOS Anticipated Stay Length: 2 or more midnights - DVT/VTE - Prophylaxis VTE/DVT Device ordered at admit?: Yes
[2017-06-01] MEDS ORDERED: SODIUM CHLORIDE 0.9% 1,000 ML IV SCH (11:00)
[2017-06-01] MEDS ORDERED: PANTOPRAZOLE 40 MG TABLET PO SCH (11:30)
[2017-06-01] MEDS ORDERED: SODIUM CHLORIDE FLUSH 0.9% 10 ML SYRINGE IVP SCH (14:00)
[2017-06-01] MEDS ORDERED: methylPREDNISolone SUCCINATE 125 MG/2 ML VIAL IVP SCH (14:00)
[2017-06-01] MEDS ORDERED: PIPERACILLIN/TAZOBACTAM 4.5 GM in SODIUM CHLORIDE 0.9% MINIBAG 100 ML IV SCH (14:00)
[2017-06-01 15:13] VITALS: BP 144/72
--- NOTE | 2017-06-01 16:19 | Discharge Plan ---
Discharge Plan Disposition: 02 Transfer Acute Care Hosp Condition: Good No Smoking: If you smoke, Please STOP! Call for help. Follow-up with: Ankit Hernandez MD [Primary Care Provider] -
[2017-06-01] MEDS ORDERED: VANCOMYCIN INJ 1 GM in SODIUM CHLORIDE 0.9% 250 ML IV SCH (18:00)
[2017-06-01] MEDS ORDERED: FLECAINIDE 50 MG TABLET PO SCH (21:00)
[2017-06-02] MEDS ORDERED: ENOXAPARIN 40 MG/0.4 ML SYRINGE SUBQ SCH (09:00)
[2017-06-02] MEDS ORDERED: MUPIROCIN 2% OINT 22 GM TUBE TOP SCH (09:00)
[2017-06-02] MEDS ORDERED: DIGOXIN 125 MCG TABLET PO SCH (09:00)
[2017-06-02] MEDS ORDERED: CYANOCOBALAMIN 5000 MCG SL SCH (09:00)
[2017-06-02] MEDS ORDERED: CHOLECALCIFEROL 1,000 UNIT TABLET PO SCH (09:00)
--- NOTE | 2017-06-28 13:37 | DISCHARGE SUMMARY ---
DATE OF ADMISSION AND DISCHARGE: 06/01/2017 ADMITTING PROVIDER: Saranya Junior MD PRIMARY CARE PROVIDER: Ankit Hernandez MD DISCHARGE DIAGNOSES 1. Acute respiratory failure with hypoxia. 2. Ground-glass opacity presenting on lung image. 3. Stage IV adenocarcinoma of esophagus. 4. Pancytopenia due to antineoplastic chemotherapy. 5. Rheumatoid arthritis in remission. 6. Abnormal weight loss. 7. Peripheral neuropathy due to chemotherapy. MEDICATIONS On transfer to [facility]: 1. Zosyn. 2. Vancomycin. 3. Solu-Medrol. 4. Tylenol. 5. Albuterol. 6. [place] p.r.n. 7. Ondansetron p.r.n. 8. Acidophilus. 9. Normal saline. 10. Protonix p.o. 11. Flecainide 100 mg p.o. b.i.d. 12. Lovenox 40 subcutaneous. 13. Vitamin D. 14. Vitamin B12. 15. Lanoxin p.o. 16. Mupirocin ointment. PRINCIPLE PROCEDURES Chest x-ray 06/01/2017, with patchy ground-glass opacities throughout both lungs , new since prior study. No large effusions. Stable right Port-A-Cath. Blood cultures: No growth. HOSPITAL COURSE: Patient was admitted for less than 12 hours. He is a rheumatoid arthritis patient who has been on Arava and Plaquenil in the past. Was started on chemotherapy this year for stage IV esophageal cancer. While he has responded to the chemotherapy with a very impressive reduction in tumor burden, he has had progressive ground-glass opacities on chest x-rays resulting in more and more hypoxia. He has had all the side effects of the chemotherapy with subsequent anorexia, dysguesia and loss of weight. He presented with increasing hypoxia to the point that he could not ambulate any more, even though he had been on home O2 prescribed by [facility]ley Gabriel [facility] the week before. Patient was started on empiric antibiotic therapy, and his pack puller was contacted to see if there was anything he wanted to add to the treatment plan. In speaking to Pulmonology, they wanted the patient transferred to their facility since the patient was going to end up needing a bronchoscopy to identify the ground-glass opacities and then adjustments of treatment made on the basis of his cultures and findings. His pack puller was worried about that there was an acquired severe immunocompromised infection. As such, the patient was transferred in stable condition with a guarded prognosis to [facility]. EXAM VITALS: Temperature at discharge was 38.1, heart rate 80, blood pressure 144/72 , respirations 40 and 93% on a 5 liter Oxymizer. GENERAL: A gaunt, cachectic, thoughtful, elderly gentleman who looks older than his stated age. Furrowed brow. Constantly picking at his sheets and anxious. NECK: Neck has shotty adenopathy. RESPIRTATORY: Lungs have diffuse crackles with tachypnea but no rib retraction. He is able to speak in short sentences. CARDIAC: PMI normally placed with a regular rate and rhythm and a systolic murmur. ABDOMEN: Abdomen is soft, nontender, benign. EXTREMITIES: Extremities are with decreased muscle mass, and evidence of his malnutrition from chronic lack of p.o. intake is evident. We were not able to start the Dobbhoff tube before he was transferred. cc: Ankit Hernandez TD: 06/28/2017 08:22 MTDD
== END 2017-06-01 16:40 | disposition short-term general hospital (02) | DRG 189 ==
LOC: EDUNIT# → ED 08:00 → ICU 09:16
PROVIDERS: ADMIT Specialist; ATTEND Specialist
DX: R09.02 Hypoxemia (principal); J96.01 Acute respiratory failure with hypoxia; J18.9 Pneumonia, unspecified organism; Y95 Nosocomial condition; I48.91 Unspecified atrial fibrillation; D61.810 Antineoplastic chemotherapy induced pancytopenia; G47.30 Sleep apnea, unspecified; C15.5 Malignant neoplasm of lower third of esophagus; C79.51 Secondary malignant neoplasm of bone; C78.01 Secondary malignant neoplasm of right lung; C77.1 Secondary and unspecified malignant neoplasm of intrathoracic lymph nodes; C79.89 Secondary malignant neoplasm of other specified sites; J84.9 Interstitial pulmonary disease, unspecified; M06.9 Rheumatoid arthritis, unspecified; R63.4 Abnormal weight loss; Z68.23 Body mass index [BMI] 23.0-23.9, adult; G62.0 Drug-induced polyneuropathy; T45.1X5D Adverse effect of antineoplastic and immunosuppressive drugs, subsequent encounter; K21.9 Gastro-esophageal reflux disease without esophagitis; K44.9 Diaphragmatic hernia without obstruction or gangrene; N40.1 Benign prostatic hyperplasia with lower urinary tract symptoms; Z99.81 Dependence on supplemental oxygen; R35.0 Frequency of micturition; R35.1 Nocturia; H54.7 Unspecified visual loss; H91.90 Unspecified hearing loss, unspecified ear; Z79.82 Long term (current) use of aspirin; Z79.899 Other long term (current) drug therapy; Z87.01 Personal history of pneumonia (recurrent); Z66 Do not resuscitate
CPT/HCPCS: 71010; 80053; 80162; 81001; 81003; 82803; 83605; 83690; 83880; 84484; 85025; 85610; 85730; 87040; 87086; 87150; 93005; 96365; 96367; 96375; 99284; 99285

== ENCOUNTER 2017-06-01 16:50 | Outpatient (CLI) | payer MEDICARE, OTHER | END 2017-06-01 16:51 | disposition short-term general hospital (02) | LOC: EMS 16:50 | PROVIDERS: ATTEND Surgery | DX: J96.01 Acute respiratory failure with hypoxia (principal) | CPT/HCPCS: A0425; A0426 ==